=== PATIENT | male | born 1935 | race Caucasian/White ===

== ENCOUNTER → 2024-09-22 12:40 | Outpatient (REF) | payer OTHER, SELFPAY | LOC: RCS 12:40 | PROVIDERS: ATTENDING PHYSICIAN Nuclear Medicine Nuclear Cardiology; FAMILY PHYSICIAN Internal Medicine | DX: I25.10 Atherosclerotic heart disease of native coronary artery without angina pectoris (principal); Z95.1 Presence of aortocoronary bypass graft; I25.2 Old myocardial infarction; I35.1 Nonrheumatic aortic (valve) insufficiency | CPT/HCPCS: 93306 ==